=== PATIENT | female | born 1950 ===

== ENCOUNTER 2018-06-09 10:47 | Emergency (ER) | payer OTHER ==
[2018-06-09] MEDS ORDERED: METHYLPREDNISOLONE 125 MG INJ ONE (11:03)
[2018-06-09] MEDS ORDERED: NA CHLORIDE 0.9% 500 ML ONE (11:03)
[2018-06-09] MEDS ORDERED: FAMOTIDINE 20 MG/2 ML VIAL IV ONE (11:03)
[2018-06-09] MEDS ORDERED: predniSONE 20 MG TAB ONE (11:03)
[2018-06-09] MEDS ORDERED: DIPHENHYDRAMINE 12.5MG/5ML LIQ ONE (11:08)
[2018-06-09 11:24] LABS: Absolute Lymphocytes (CBC) 2.3 K/uL (0.7-4.9); Absolute Monocytes 0.6 K/uL (0.1-1.3); Absolute Neutrophil 2.2 K/uL (1.8-8.0); Basophils % 0.4 % (0-1.3); Eosinophils % 4.9 % (0-4.4); Hematocrit 42.3 % (36.0-45.0); Lymphocytes % 42.5 % (15.3-44.8); MCH 30.6 pg (27.0-35.0); MCV 90.5 fL (80-100); MPV 9.8 fL (7.6-11.3); Monocytes % 10.9 % (3.3-12.3); RBC Red Blood Cell Count 4.67 M/uL (3.86-4.86)
[2018-06-09] MEDS ORDERED: ONDANSETRON 4 MG/2 ML VIAL ONE (11:41)
--- NOTE | 2018-06-09 11:46 | EDPHYS ---
Physician Documentation [facility] Name: Maryanne Fierro Age: 68 yrs Sex: Female : 1950 Arrival Date: 06/09/2018 Time: 10:48 Bed 4 Private MD: ED Physician Marcio Fierro HPI: 06/09 10:55 This 68 yrs old Female presents to ER via Unassigned with complaints of Bee riri Sting. 10:55 The patient presents with difficulty swallowing, itching. Onset: The symptoms/episode riri began/occurred just prior to arrival. Associated signs and symptoms: The patient has no apparent associated signs or symptoms. Possible causes: The patient has no known obvious cause for the symptoms. At home the patient or guardian has treated the symptoms with Benadryl. Severity of symptoms: At their worst the symptoms were mild in the emergency department the symptoms are unchanged. The patient has not experienced similar symptoms in the past. Historical: - Allergies: 11:01 pain meds; iw - Social history:: Smoking status: Patient uses tobacco products. - Family history:: not pertinent. - Ebola Screening: : Patient negative for fever greater than or equal to 101.5 degrees Fahrenheit, and additional compatible Ebola Virus Disease symptoms Patient denies exposure to infectious person Patient denies travel to an Ebola-affected area in the 21 days before illness onset No symptoms or risks identified at this time. ROS: 10:55 Constitutional: Negative for fever, chills, and weight loss, Eyes: Negative for injury, riri pain, redness, and discharge, ENT: Negative for injury, pain, and discharge, Cardiovascular: Negative for chest pain, palpitations, and edema, Respiratory: Negative for shortness of breath, cough, wheezing, and pleuritic chest pain, Abdomen/GI: Negative for abdominal pain, nausea, vomiting, diarrhea, and constipation, Back: Negative for injury and pain, : Negative for injury, bleeding, discharge, and swelling, MS/Extremity: Negative for injury and deformity, Skin: Negative for injury, rash, and discoloration, Neuro: Negative for headache, weakness, numbness, tingling, and seizure, Psych: Negative for depression, anxiety, suicide ideation, homicidal ideation, and hallucinations, Allergy/Immunology: Negative for hives, rash, and allergies, Endocrine: Negative for neck swelling, polydipsia, polyuria, polyphagia, and marked weight changes, Hematologic/Lymphatic: Negative for swollen nodes, abnormal bleeding, and unusual bruising. 10:55 Neck: Positive for swelling. Exam: 10:55 Constitutional: This is a well developed, well nourished patient who is awake, alert, riri and in no acute distress. Head/Face: Normocephalic, atraumatic. Eyes: Pupils equal round and reactive to light, extra-ocular motions intact. Lids and lashes normal. Conjunctiva and sclera are non-icteric and not injected. Cornea within normal limits. Periorbital areas with no swelling, redness, or edema. ENT: Nares patent. No nasal discharge, no septal abnormalities noted. Tympanic membranes are normal and external auditory canals are clear. Oropharynx with no redness, swelling, or masses, exudates, or evidence of obstruction, uvula midline. Mucous membranes moist. Chest/axilla: Normal chest wall appearance and motion. Nontender with no deformity. No lesions are appreciated. Cardiovascular: Regular rate and rhythm with a normal S1 and S2. No gallops, murmurs, or rubs. Normal PMI, no JVD. No pulse deficits. Respiratory: Lungs have equal breath sounds bilaterally, clear to auscultation and percussion. No rales, rhonchi or wheezes noted. No increased work of breathing, no retractions or nasal flaring. Abdomen/GI: Soft, non-tender, with normal bowel sounds. No distension or tympany. No guarding or rebound. No evidence of tenderness throughout. Back: No spinal tenderness. No costovertebral tenderness. Full range of motion. Female : Normal external genitalia. Skin: Warm, dry with normal turgor. Normal color with no rashes, no lesions, and no evidence of cellulitis. MS/ Extremity: Pulses equal, no cyanosis. Neurovascular intact. Full, normal range of motion. Neuro: Awake and alert, GCS 15, oriented to person, place, time, and situation. Cranial nerves II-XII grossly intact. Motor strength 5/5 in all extremities. Sensory grossly intact. Cerebellar exam normal. Normal gait. Psych: Awake, alert, with orientation to person, place and time. Behavior, mood, and affect are within normal limits. 10:55 ENT: Posterior pharynx: is normal, no acute changes, Airway: normal, no evidence of obstruction. Vital Signs: 11:14 BP 137 / 64; Pulse 89; Resp 18 S; Temp 98.3; Pulse Ox 100% on R/A; iw MDM: 10:50 Patient medically screened. [facility] 10:55 Data reviewed: vital signs, nurses notes, lab test result(s). [facility] 06/09 10:55 Order name: CBC with Diff [facility] 06/09 10: Order name: Comprehensive Metabolic Panel [facility] 06/09 10: Order name: CBC with Automated Diff EDMS Administered Medications: 11:03 Drug: SOLU-Medrol 125 mg Route: IVP; Site: left antecubital; la1 16:18 Follow up: Response: No adverse reaction sg 11:03 Drug: predniSONE 40 mg Route: PO; la1 16:18 Follow up: Response: No adverse reaction sg 11:04 Drug: NS 0.9% 500 ml Route: IV; Rate: bolus; Site: left antecubital; la1 11:04 Not Given (Other Intervention Used): Benadryl 25 mg IVP once la1 11:04 Drug: Pepcid 20 mg Route: IVP; Site: left antecubital; la1 16:18 Follow up: Response: No adverse reaction sg 11:04 Drug: Benadryl 25 mg Route: PO; la1 12:00 Follow up: Response: No adverse reaction sg 11:42 Drug: Zofran 4 mg Route: IVP; Site: left antecubital; iw 12:15 Follow up: Response: No adverse reaction; Nausea is decreased sg Disposition: 06/09/18 11:46 Discharged to Home. Impression: Bee allergy status. - Condition is Stable. - Discharge Instructions: Allergies, Adult, Bee, Wasp, or Hornet Sting, Adult, Angioedema, Angioedema, [id number], Allergies, [id number]. - Prescriptions for Benadryl 25 mg Oral Capsule - take 1 capsule by ORAL route every 6 hours As needed; 30 tablet. Pepcid 20 mg Oral Tablet - take 1 tablet by ORAL route every 12 hours for 10 days; 20 tablet. Prednisone 20 mg Oral Tablet - take 2 tablet by ORAL route once daily for 5 days; 10 tablet. EpiPen 0.3 mg Injection auto- injector - inject 1 pen by INTRAMUSCULAR route one time Inject into the outer portion of the thigh, through clothing if necessary. Indicated in the emergency treatment of allergic reactions; 1 Container. - Medication Reconciliation Form, Thank You Letter, Antibiotic Education, Prescription Opioid Use form. - Follow up: Private Physician; When: 1 - 2 days; Reason: Recheck today's complaints, Continuance of care, Re-evaluation by your physician. - Problem is new. - Symptoms have improved. Signatures: Dispatcher [employer] EDMS Marcio Fierro MD MD cha Williams, Irene, RN RN iw Bradford Sinha RN RN la1 Asuncion Vasquez Steven RN sg Corrections: (The following items were deleted from the chart) 11:57 11:46 06/09/2018 11:46 Discharged to Home. Impression: Bee allergy status. Condition is ag Stable. Discharge Instructions: Allergies, Adult, Bee, Wasp, or Hornet Sting, Adult, Angioedema, Angioedema, [id number], Allergies, [id number]. Prescriptions for Benadryl 25 mg Oral Capsule - take 1 capsule by ORAL route every 6 hours As needed; 30 tablet, Pepcid 20 mg Oral Tablet - take 1 tablet by ORAL route every 12 hours for 10 days; 20 tablet, Prednisone 20 mg Oral Tablet - take 2 tablet by ORAL route once daily for 5 days; 10 tablet, EpiPen 0.3 mg Injection auto-injector - inject 1 pen by INTRAMUSCULAR route one time Inject into the outer portion of the thigh, through clothing if necessary. Indicated in the emergency treatment of allergic reactions; 1 Container. and Forms are Medication Reconciliation Form, Thank You Letter, Antibiotic Education, Prescription Opioid Use. Follow up: Private Physician; When: 1 - 2 days; Reason: Recheck today's complaints, Continuance of care, Re-evaluation by your physician. Problem is new. Symptoms have improved. riri
--- NOTE | 2018-06-09 11:46 | ER ---
Nurse's Notes 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 Transition of care: patient was not received from another setting of care. Onset: The symptoms/episode began/occurred just prior to arrival. Anaphylaxis evaluation, no signs or symptoms of anaphylaxis were noted. Onset of symptoms was June 09, 2018. 10:55 Method Of Arrival: Wheelchair iw 11:02 Risk Assessment: Do you want to hurt yourself or someone else? Patient reports no iw desire to harm self or others. Initial Sepsis Screen: Does the patient meet any 2 criteria? No. Patient's initial sepsis screen is negative. Does the patient have a suspected source of infection? No. Patient's initial sepsis screen is negative. Care prior to arrival: None. 11:02 Acuity: DIEGO 2 iw Historical: - Allergies: 11:01 pain meds; iw - Social history:: Smoking status: Patient uses tobacco products. - Family history:: not pertinent. - Ebola Screening: : Patient negative for fever greater than or equal to 101.5 degrees Fahrenheit, and additional compatible Ebola Virus Disease symptoms Patient denies exposure to infectious person Patient denies travel to an Ebola-affected area in the 21 days before illness onset No symptoms or risks identified at this time. Screenin:50 Abuse screen: Denies threats or abuse. Denies injuries from another. Nutritional sg screening: No deficits noted. Tuberculosis screening: No symptoms or risk factors identified. Never had TB. Fall Risk None identified. Assessment: 11:10 General: Appears in no apparent distress. Behavior is calm, cooperative, appropriate sg for age. Pain: Denies pain. Neuro: Level of Consciousness is awake, alert, obeys commands, Oriented to person, place, time, Moves all extremities. Gait is steady, Speech is normal, Facial symmetry appears normal. Cardiovascular: Heart tones S1 S2 present Chest pain is denied. Respiratory: Airway is patent Respiratory effort is even, unlabored, Respiratory pattern is regular, symmetrical, Breath sounds are clear. GI: No signs and/or symptoms were reported involving the gastrointestinal system. : No signs and/or symptoms were reported regarding the genitourinary system. EENT: No signs and/or symptoms were reported regarding the EENT system. Derm: Skin is pink, warm \T\ dry. Musculoskeletal: No signs and/or symptoms reported regarding the musculoskeletal system. 11:43 Reassessment: Patient appears in no apparent distress at this time. Patient and/or iw family updated on plan of care and expected duration. Pain level reassessed. Patient is alert, oriented x 3, equal unlabored respirations, skin warm/dry/pink. pt given jello and thien viet as requested, family remains at bedside. Vital Signs: 11:14 BP 137 / 64; Pulse 89; Resp 18 S; Temp 98.3; Pulse Ox 100% on R/A; iw ED Course: 10:48 Patient arrived in ED. tw3 10:50 Marcio Fierro MD is Attending Physician. [facility] 11:00 Inserted saline lock: 20 gauge in left antecubital area, using aseptic technique. iw 11:04 Triage completed. iw 11:10 Patient has correct armband on for positive identification. Bed in low position. Call sg light in reach. Side rails up X2. bus monitor on. Pulse ox on. NIBP on. Warm blanket given. Head of bed elevated. 11:32 Evan oSto, RN is Primary Nurse. sg Administered Medications: 11:03 Drug: SOLU-Medrol 125 mg Route: IVP; Site: left antecubital; la1 16:18 Follow up: Response: No adverse reaction sg 11:03 Drug: predniSONE 40 mg Route: PO; la1 16:18 Follow up: Response: No adverse reaction sg 11:04 Drug: NS 0.9% 500 ml Route: IV; Rate: bolus; Site: left antecubital; la1 11:04 Not Given (Other Intervention Used): Benadryl 25 mg IVP once la1 11:04 Drug: Pepcid 20 mg Route: IVP; Site: left antecubital; la1 16:18 Follow up: Response: No adverse reaction sg 11:04 Drug: Benadryl 25 mg Route: PO; la1 12:00 Follow up: Response: No adverse reaction sg 11:42 Drug: Zofran 4 mg Route: IVP; Site: left antecubital; iw 12:15 Follow up: Response: No adverse reaction; Nausea is decreased sg Outcome: 11:46 Discharge ordered by MD. menezes 11:57 Patient left the ED. 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 iw iw 11:51 11:14 Pulse 89bpm; Resp 18bpm; Spontaneous; Pulse Ox 100% RA; Temp 98.3F; iw iw
[2018-06-09 11:54] LABS: Albumin 4.2 g/dL (3.4-5.0); Bilirubin Total 0.7 mg/dL (0.2-1.0); Potassium 4.4 mmol/L (3.5-5.1); Protein, Total 7.7 g/dL (6.4-8.2)
[2018-06-09 12:18] LABS: Blood Morphology Comment NOT SEEN (NOT SEEN); Platelet Estimate ADEQ
== END 2018-06-09 11:57 | disposition home or self-care (01) ==
LOC: ER 10:47
DX: T63.444A Toxic effect of venom of bees, undetermined, initial encounter (principal); W57.XXXD Bitten or stung by nonvenomous insect and other nonvenomous arthropods, subsequent encounter; Y92.9 Unspecified place or not applicable; Z91.030 Bee allergy status
CPT/HCPCS: 36415; 80053; 85025; 96374; 96375; 99284; J2405; J2930; J7512